=== PATIENT | female | born 1940 | race African-American/Black ===

== ENCOUNTER 2017-03-28 13:44 | Emergency (ER) | payer OTHER ==
[~2017-03-28] VITALS: Ht 160 cm; Wt 63.5 kg
== END 2017-03-28 18:10 | disposition home or self-care (01) ==
LOC: ER 13:44
DX: M79.662 Pain in left lower leg (principal); S80.12XS Contusion of left lower leg, sequela; W22.8XXS Striking against or struck by other objects, sequela

== ENCOUNTER 2021-09-25 13:55 | Emergency (ER) | payer OTHER ==
[~2021-09-25] VITALS: Ht 152.4 cm; Wt 63.5 kg
[2021-09-25] MEDS ORDERED: BISOPROLOL-HCT1 EAC2 (14:06)
[2021-09-25] MEDS ORDERED: ALPRAZOLAM1 MG (14:06)
[2021-09-25] MEDS ORDERED: AMLODIPINE-VAL1 EAC2 (14:06)
[2021-09-25] MEDS ORDERED: PYLERA CAPSULE1 EACH (14:06)
[2021-09-25] MEDS ORDERED: FENOFIBRIC ACI135 MG (14:06)
[2021-09-25] MEDS ORDERED: ATORVASTATIN CA40 MG (14:06)
[2021-09-25] MEDS ORDERED: PANTOPRAZOLE SO40 MG (14:06)
[2021-09-25] MEDS ORDERED: GABAPENTIN300 M2 (14:06)
[2021-09-25] MEDS ORDERED: TRIAMTERENE-HC1 EAC1 (14:07)
[2021-09-25] MEDS ORDERED: SIMVASTATIN5 MG (14:07)
[2021-09-26] MEDS ORDERED: CARAFATE1 GM PO (09:35)
== END 2021-09-26 16:35 | disposition home or self-care (01) ==
LOC: ER 13:55
DX: E86.0 Dehydration (principal); E87.1 Hypo-osmolality and hyponatremia; I10 Essential (primary) hypertension; K21.9 Gastro-esophageal reflux disease without esophagitis